=== PATIENT | female | born 1990 | race Two or more races ===

== ENCOUNTER 2022-06-22 15:33 | Emergency (ER) | payer MEDICAID, OTHER ==
[~2022-06-22] VITALS: Ht 167.6 cm; Wt 80.0 kg
[2022-06-22 16:30] LABS: Urine Bacteria NONE SEEN /hpf (None Seen); Urine Blood Negative /uL (Negative); Urine Specific Gravity 1.002 (1.001-1.035); Urine WBC <1 /hpf (0 - 5)
[2022-06-22] MEDS ORDERED: PHEN1TAB38 PO (21:04)
[2022-06-22 21:10] VITALS: BP 120/72
== END 2022-06-22 21:16 | disposition home or self-care (01) ==
LOC: ER 15:38
DX: N39.0 Urinary tract infection, site not specified (principal)
CPT/HCPCS: 81001; 81025; 93005